=== PATIENT | male | born 1980 | race Caucasian/White ===

== ENCOUNTER 2019-08-23 12:32 | Emergency (ER) | payer OTHER ==
[2019-08-23] MEDS ORDERED: Acetaminophen 500 MG TAB ONE (12:54)
--- NOTE | 2019-08-23 13:15 | CT ---
CT BRAIN NONCONTRAST: DATE: 08/23/2019 HISTORY: 39-year-old male status post acute head trauma from fall FINDINGS: There is no evidence of acute intra-axial or extra-axial hemorrhage. There is no midline shift or any other mass effect. There is no extra-axial fluid collection. The ventricles are normal in size and configuration. The tympanomastoid cavities, and the upper portions of the paranasal sinuses included in these images, are grossly clear. Calvarium is intact. IMPRESSION: Normal.
--- NOTE | 2019-08-23 13:26 | CT ---
CT CERVICAL SPINE WITHOUT CONTRAST: HISTORY: A 39-year-old male with injuries, neck pain. FINDINGS: There is loss of cervical lordosis. There are degenerative changes, most prominent at the C5-C6 level . No acute fracture, subluxation or facet malalignment is seen. No abnormal prevertebral soft tissue swelling is seen. The lung apices are clear. IMPRESSION: No CT evidence of cervical spine fracture or traumatic subluxation. POS: [facility]
== END 2019-08-23 13:40 | disposition home or self-care (01) ==
LOC: MADERS 12:32
DX: S06.0X0A Concussion without loss of consciousness, initial encounter (principal); S16.1XXA Strain of muscle, fascia and tendon at neck level, initial encounter; S00.83XA Contusion of other part of head, initial encounter; F25.0 Schizoaffective disorder, bipolar type; Z79.899 Other long term (current) drug therapy; W01.198A Fall on same level from slipping, tripping and stumbling with subsequent striking against other object, initial encounter
CPT/HCPCS: 70450; 72125